=== PATIENT | female | born 1940 | race Caucasian/White ===

== ENCOUNTER 2019-09-27 14:43 | Inpatient (IN) | payer MEDICARE, MEDICAID ==
[~2019-09-27] VITALS: Ht 152.4 cm; Wt 52.2 kg
[~2019-09-27 14:43] MED LIST: ACET-9533 PO; ASPI-1718 PO; ATOR40TA PO; BACL10TA4 PO; DIT5 PO; DOCU-2 PO; FLUO-387 PO; GABA300C PO; MELO15TA11 PO; METO200T12 PO; NITR100C7 PO; RANI-287 PO; TRAM50TA1 PO; [UNRECOGNIZED DRUG - CODE] PO
[2019-09-27 14:56] VITALS: BP 163/81
--- NOTE | 2019-09-27 15:07 | NUR ---
PATIENT WHEELCHAIR ASSISTED TO BE 12. HOOKED UP TO MONITOR.
--- NOTE | 2019-09-27 15:41 | NUR ---
78/F TO ED WITH C/O NAUSEA/VOMTTING X 3 HRS PRIOR TO ARRIVAL. BOWEL SOUNDS ACTIVE X 4. NO DISTENTION NOTED. DENIES PAIN UPON PALPATION. ACTIVE VOMITTING UPON ARRIVAL TO BED. DR BAILON AWARE.
[2019-09-27] MEDS ORDERED: NACL 0.9% 1,000 ML IV SCH (15:47)
[2019-09-27] MEDS ORDERED: NACL 0.9% 500 ML IV SCH (15:47)
[2019-09-27] MEDS ORDERED: GLYCOPYRROLATE 0.2 MG/ML VIAL IV ONE (15:50)
[2019-09-27] MEDS ORDERED: METOCLOPRAMIDE 10 MG/2 ML INJ VIAL IVP ONE (15:50)
[2019-09-27] MEDS ORDERED: FAMOTIDINE 20 MG/2 ML VIAL IVP ONE (15:50)
[2019-09-27] MEDS ORDERED: ONDANSETRON 4 MG/2 ML VIAL IVP ONE (15:50)
[2019-09-27] MEDS ORDERED: KETOROLAC 15 MG/ML VIAL IVP ONE (15:55)
--- NOTE | 2019-09-27 16:00 | NUR ---
ULTRASOUND AT BEDSIDE
--- NOTE | 2019-09-27 16:25 | NUR ---
MEDICATED ORDERED FOR N/V. WILL CONTINUE TO MONITOR.
--- NOTE | 2019-09-27 16:35 | NUR ---
NO EPISODES OF VOMITTING POST IV ANTIEMETICS. WILL CONTINUE TO ASSESS.
[2019-09-27 16:48] LABS: BASOPHILS % (AUTO) 0.3 % (0.0-2.0); EOSINOPHILS % (AUTO) 0.2 % (0.0-4.0); HEMATOCRIT 43.9 % (36-48); HEMOGLOBIN 14.4 g/dL (12.0-16.0); LYMPHOCYTES # (AUTO) 1.3 K/uL (2.5-16.5); MEAN CORPUSCULAR HEMOGLOBIN 25 pg (27-31); MEAN CORPUSCULAR HGB CONC 33 g/dL (33-37); MEAN CORPUSCULAR VOLUME 77.3 fL (80-94); MONOCYTES # (AUTO) 0.7 K/uL (0.8-1.0); MONOCYTES % (AUTO) 6.4 % (1.7-9.3); NEUTROPHILS # (AUTO) 8.7 K/uL (1.8-7.7); NEUTROPHILS % (AUTO) 81.1 % (42.2-75.2); PLATELET COUNT (AUTO) 225 K/uL (140-450); RED BLOOD CELL COUNT(AUTO) 5.68 MIL/uL (4.20-5.40); RED CELL DISTRIBUTION WIDTH 15.3 % (11.6-13.7); WHITE BLOOD COUNT (AUTO) 10.7 K/uL (4.8-10.8)
[2019-09-27 17:06] LABS: APPEARANCE,URINE CLEAR (CLEAR); BILIRUBIN,URINE NEGATIVE (NEGATIVE); BLOOD, URINE NEGATIVE (NEGATIVE); COLOR,URINE YELLOW (YELLOW); LEUKOCYTE ESTERASE ,URINE NEGATIVE (NEGATIVE); NITRITE, URINE NEGATIVE (NEGATIVE); PH,URINE 8.5 (5.0-9.0); UGLUCOSE NEGATIVE (NEGATIVE)
[2019-09-27 17:06] LABS: PROTHROMBIN TIME 9.6 secs (10.8-13.4)
[2019-09-27 17:13] LABS: ANION GAP 19.6 (8-16); CARBON DIOXIDE 25.8 mmol/L (21-32); CHLORIDE 99 mmol/L (98-107); CREATININE 0.9 mg/dL (0.6-1.3); GLUCOSE 133 mg/dL (74-106); POTASSIUM 3.4 mmol/L (3.5-5.1); SODIUM SERUM 141 mmol/L (136-145); UREA NITROGEN, BLOOD 19 mg/dL (7-18)
[2019-09-27 17:27] LABS: ALBUMIN 4.4 g/dL (3.4-5.0); AMYLASE 75 U/L (25-115); ASPARTATE AMINOTRANSFERASE 24 U/L (15-37); GAMMA GLUTAMYL TRANSFERASE 9 U/L (7-51); LIPASE 238 U/L (73-393); MAGNESIUM 1.8 mg/dL (1.8-2.4); TOTAL BILIRUBIN 0.9 mg/dL (0.0-1.0)
--- NOTE | 2019-09-27 17:37 | NUR ---
Anthony lovell in [facility] - 09/27/19 at 1738 by ORION T[address]EN TO [address]
[2019-09-27] MEDS ORDERED: METF500T PO (18:10)
[2019-09-27] MEDS ORDERED: MEMA10TA PO (18:10)
[2019-09-27] MEDS ORDERED: EXE9.5T PO (18:10)
[2019-09-27] MEDS ORDERED: MIRA25TE PO (18:10)
[2019-09-27] MEDS ORDERED: ACETAMINOPHEN 325 MG TAB PO PRN (18:40)
[2019-09-27] MEDS ORDERED: DOCUSATE SODIUM 100 MG GELCAP PO PRN (18:40)
[2019-09-27] MEDS ORDERED: ONDANSETRON 4 MG/2 ML VIAL IM/IVP PRN (18:40)
--- NOTE | 2019-09-27 19:12 | NUR ---
REPORT TO EFRA RAMOS. ALL CARE TRANSFERRED AT THIS TIME.
--- NOTE | 2019-09-27 19:13 | NUR ---
RECEIVED REPORT FROM EFRA BROCK.
--- NOTE | 2019-09-27 19:30 | NUR ---
Admited to Med/Surg. Will go to room 123 B. Belongings list completed. Report to EFRA COSME .
--- NOTE | 2019-09-27 19:30 | NUR ---
RECEIVED PT FROM ER VIA WHEELCHAIR, PT AAOX2 ROMANIAN SPEAKER IV ON LEFT AC INFUSING WELL , SKIN IS INTACT, , MRSA NARES SWAB PROTOCOL TAKEN AND SENT TO LAB RELAIVE AT BED SIDE INITIAL ASSESSMENT DONE
[2019-09-27 19:59] LABS: PHOSPHORUS 2.1 mg/dL (2.5-4.9); THYROID STIMULATING HORMONE 3.2 uIU/mL (0.34-3.74)
[2019-09-27 20:00] VITALS: BP 154/75
[2019-09-27] MEDS ORDERED: INSULIN LISPRO SLIDING SCALE 100 UNITS/ML VIAL SUBQ PRN (21:05)
[2019-09-27] MEDS ORDERED: hydrALAZINE 20 MG/ML VIAL IVP SCH (21:05)
[2019-09-27] MEDS ORDERED: DEXTROSE 50% 50 ML SYR IVP PRN (21:05)
[2019-09-27 22:02] LABS: ACETONE, SERUM NEGATIVE (NEGATIVE)
--- NOTE | 2019-09-27 22:30 | NUR ---
PT IS ASSISTED TO AMBULATES TO THE RESTROOM VOIDING WELL
[2019-09-27] MEDS ORDERED: POTASSIUM CHLORIDE 10 MEQ TABER PO SCH (23:00)
[2019-09-28] VITALS: BP 123/67
[2019-09-28] MEDS: NACL 0.9% 1,000 ML IV SCH ×2 (01:00→11:16)
--- NOTE | 2019-09-28 01:00 | NUR ---
PT SLEEPING WELL IV ON LEFT AC INFUSING WELL REMAIN STBLE NOT VOMITING SINCE ADMISSION
--- NOTE | 2019-09-28 04:00 | NUR ---
SPONGE BATH GIVEN LINEN CHANGED, PT VOIDING WELL WALKING TO THE RESTROOM REMAIN STBLE NOT NAUSEAS NOT VOMITING NOT ABD PAIN
--- NOTE | 2019-09-28 05:49 | NUR ---
PT IS TAKEN TO CT HEAD , PT COOPERATIVE NOT DISTRESS NOTED
[2019-09-28 06:14] LABS: CHOL/HDL RATIO 1.9 (1-4.5)
[2019-09-28] MEDS: BLOOD GLUCOSE MONITORING 1 DEV DEV FS SCH ×2 (06:55→12:20)
--- NOTE | 2019-09-28 07:24 | NUR ---
BLOOD SUGAR TEST 86, PT REMAIN STABLE NOT VOMITING TOLERATING WELL LIQUID DIET PT IS ENDORSED TODAY SHIFT NURSE FOR CONTINUE OF CARE .
--- NOTE | 2019-09-28 07:42 | NUR ---
RECEIVED BEDSIDE REPORT FROM PM RN PT AWAKE IN BED PT APPEARS STABLE AND IN NO APPARENT DISTRESS. ALL SAFETY MEASURES ARE IN PLACE WILL CONTINUE TO MONITOR. CALL LIGHT WITHIN REACH.
--- NOTE | 2019-09-28 08:42 | NUR ---
PATIENT HAS BEEN SCREENED AND CATEGORIZED MODERATE NUTRITION RISK. PATIENT WILL BE SEEN WITHIN 3-5 DAYS OF ADMISSION. 09/30/19 10/02/[address]
[2019-09-28 08:56] VITALS: BP 126/64
[2019-09-28] MEDS ORDERED: MEMANTINE 10 MG TAB PO SCH (09:00)
[2019-09-28] MEDS ORDERED: SODIUM PHOS / POTASSIUM PHOS 1 PKT PDR PO SCH (09:00)
[2019-09-28] MEDS ORDERED: FAMOTIDINE 20 MG TAB PO SCH (09:00)
[2019-09-28] MEDS ORDERED: PANTOPRAZOLE 40 MG INJ VIAL IVP SCH (09:00)
[2019-09-28] MEDS ORDERED: ASPIRIN 81 MG TAB.CHEW PO SCH (09:00)
--- NOTE | 2019-09-28 13:50 | NUR ---
REVIEWED DISCHARGE INSTRUCTIONS WITH PATIENTS SON IN LAW. HE SPOKE [place] FLUENTLY. ANSWERED ALL QUESTIONS FOR THE PATIENT. REMOVED IV IV TIP INTACT. ALL SAFETY MEASURES ARE IN PLACE. REMOVED ID BAND. PT ESCORTED TO FRONT LOBBY VIA WHEELCHAIR PT DAUGHTER AND SON IN LAW PRESENT AT DISCHARGE. ALL SAFETY MEASURES ARE IN PLACE. PT LEFT WITH ALL PERSONAL BELONGINGS. PT IS AWARE OF HER FOLLOW UP APPOINTMENT THAT HAS BEEN SCHEDULED FOR HER. ALL SAFETY MEASURES ARE IN PLACE.
--- NOTE | 2019-09-28 13:50 | NUR ---
MERLIN assessment/discharge plan High Risk DC Screen Yes Name: Maile Payne Home Relationship: daughter Pre-Admission Living Arrangements: Lives with Other Other: Maile Payne Prior ADL Independent Current Home Health Name/Tel: N/A Current DME/02 Name/Tel: blood glucose monitor Current Hospice Name/Tel: N/A Current Dialysis Name/Tel: N/A Healthcare Decision Maker: Patient Advance Directive No Information Taught: Advance Directive Person Taught: Family Patient Teaching Tools: Computer Generated Print Verbal Factors Affecting Learning: None Participation Level: Active Evaluation: Gestures Understanding Verbalizes Understanding Educator: MERLIN John Tentative Discharge Plan Summary: Patient is an 78 year old female with previous medical history significant for diabetes, hypertension, and dementia. I met with patient and patient's sister Hanny Parr at bedside. Patient and Hanny speak Singaporean. Patient lives at home with her daughter Maile Payne and plans to return home upon discharge. Patient's pcp is Dean Tate and she does not have any difficulty filling her prescriptions at pharmacy. Patient's family helps patient with transportation. Patient and Hanny do not have any questions/concerns at this time. Oceanography Teacher and/or Assistive Technology Trainer will follow up as needed. Signature: MERLIN John Date: Sep 28, 2019
--- NOTE | 2019-09-28 13:53 | NUR ---
DC [age] YRS OLD FEMALE PT WAS ADMITTED FROM HOME WITH A DX OF INTRACTABLE VOMITING, LACTIC ACIDOSIS . PT HAS A HX OF DM, HTN, DEMENTIA AND ARTHRITIS. CT HEAD (-) CT ABD/PELVIS AND ULTRASOUND OF ABDOMEN NORMAL . ADMINISTERED IVF FOR HYDRATION, ZOFRAN AND PEPCID IVP FOR VOMITING.DIET WAS ADVANCED AND WELL TOLERATED. PHYSICAL THERAPY WALKED THE PATIENT AND SHE WAS STEADY ON HER FEET VITALS STABLE . PATIENT IS STABLE FOR DISCHARGE HOME A FOLLOW UP APPOINTMENT WITH SCHEDULED WITH HER PCP . PT IS STABLE TO BE DISCHARGE.
[2019-09-28] MEDS ORDERED: BACLOFEN 10 MG TAB PO SCH (17:00)
[2019-09-28] MEDS ORDERED: ATORVASTATIN 20 MG TAB PO SCH (17:00)
== END 2019-09-28 14:00 | disposition home or self-care (01) | DRG 640 ==
LOC: MED 14:43 → MTU 18:36
PROVIDERS: ADMIT General Practice; ATTEND General Practice
DX: E86.0 Dehydration (principal); G93.41 Metabolic encephalopathy; E87.2 Acidosis; F03.90 Unspecified dementia, unspecified severity, without behavioral disturbance, psychotic disturbance, mood disturbance, and anxiety; I10 Essential (primary) hypertension; E11.9 Type 2 diabetes mellitus without complications; M19.90 Unspecified osteoarthritis, unspecified site; E87.6 Hypokalemia; E83.39 Other disorders of phosphorus metabolism; E78.5 Hyperlipidemia, unspecified; Z88.5 Allergy status to narcotic agent; Z82.5 Family history of asthma and other chronic lower respiratory diseases; Z83.3 Family history of diabetes mellitus; Z82.3 Family history of stroke
CPT/HCPCS: 36415; 70450; 71045; 76705; 80053; 81003; 82009; 82150; 82948; 82977; 83036; 83605; 83690; 83735; 83880; 84100; 84134; 84443; 84484; 85025; 85610; 87081; 93005; 93880; 96361; 96374; 96375; 99285; J1815; J1885; J2405; J2765; J3490; J7030; Q0092

== ENCOUNTER 2019-11-07 11:20 | Emergency (ER) | payer MEDICARE, MEDICAID ==
[~2019-11-07] VITALS: Ht 152.4 cm; Wt 49.0 kg
[~2019-11-07 11:20] MED LIST changes: -ACET-9533 PO; -ASPI-1718 PO; +ASPI-1822 PO; -DIT5 PO; -DOCU-2 PO; -FLUO-387 PO; -GABA300C PO; -MELO15TA11 PO; +MEMA10TA PO; +METF500T PO; -NITR100C7 PO; -RANI-287 PO; -TRAM50TA1 PO; -[UNRECOGNIZED DRUG - CODE] PO
[2019-11-07 11:28] VITALS: BP 120/74
--- NOTE | 2019-11-07 11:38 | NUR ---
Anthony lovell in [facility] - 11/07/19 at 1139 by MED1 WAIT AT LOBBY. HANDED ON URINE CUP.
--- NOTE | 2019-11-07 11:46 | NUR ---
78 Y/F PRESENTS TO ED FOR CP "SWELLING AND TIGHT" X 8 DAYS. PAIN IS ON AND OFF. PT WAS SEEN IN URGENT CARE TODAY AND WAS SENT HERE FOR A CARDIAC EVALUATION. PAIN IS WORSE WHEN WALKING. PT REPORTS 6/10 PAIN, SOB, FOUNTAIN (5/10). PT DENEIS NAUSEA OR BLURRED VISION. HX- CONGENITAL CARDIAC PROBLEM, HTN, HLD, AND DM
--- NOTE | 2019-11-07 12:10 | NUR ---
XR AT BEDSIDE.
--- NOTE | 2019-11-07 12:29 | NUR ---
LAB AT BEDSIDE.
[2019-11-07 12:53] LABS: BASOPHILS # (AUTO) 0.2 K/uL (0.00-0.22); BASOPHILS % (AUTO) 2.4 % (0.0-2.0); EOSINOPHILS # (AUTO) 0.1 K/uL (0-0.4); EOSINOPHILS % (AUTO) 0.7 % (0.0-4.0); HEMOGLOBIN 14.4 g/dL (12.0-16.0); LYMPHOCYTES # (AUTO) 2.2 K/uL (2.5-16.5); LYMPHOCYTES % (AUTO) 27.4 % (20.5-51.1); MEAN CORPUSCULAR HEMOGLOBIN 25 pg (27-31); MEAN CORPUSCULAR HGB CONC 33 g/dL (33-37); MEAN CORPUSCULAR VOLUME 75.3 fL (80-94); MONOCYTES # (AUTO) 0.4 K/uL (0.8-1.0); NEUTROPHILS # (AUTO) 5.1 K/uL (1.8-7.7); NEUTROPHILS % (AUTO) 64.5 % (42.2-75.2); PLATELET COUNT (AUTO) 215 K/uL (140-450); RED BLOOD CELL COUNT(AUTO) 5.71 MIL/uL (4.20-5.40)
[2019-11-07 13:18] LABS: ANION GAP 12.7 (8-16); CARBON DIOXIDE 28.4 mmol/L (21-32); CHLORIDE 104 mmol/L (98-107); CREATININE 0.9 mg/dL (0.6-1.3); GLUCOSE 78 mg/dL (74-106); POTASSIUM 4.1 mmol/L (3.5-5.1); SODIUM SERUM 141 mmol/L (136-145); UREA NITROGEN, BLOOD 14 mg/dL (7-18)
[2019-11-07 13:23] LABS: ALBUMIN 3.9 g/dL (3.4-5.0); ASPARTATE AMINOTRANSFERASE 27 U/L (15-37); TOTAL BILIRUBIN 0.8 mg/dL (0.0-1.0)
--- NOTE | 2019-11-07 14:14 | NUR ---
DR. CHIU AT BEDSIDE.
--- NOTE | 2019-11-07 14:15 | NUR ---
Dr. Portillo is evaluating the patient at bedside.
[2019-11-07 14:59] VITALS: BP 127/69
== END 2019-11-07 15:00 | disposition home or self-care (01) ==
LOC: MED 11:20
DX: R07.9 Chest pain, unspecified (principal); R05 Cough; E11.9 Type 2 diabetes mellitus without complications; I10 Essential (primary) hypertension; Z79.82 Long term (current) use of aspirin; Z79.84 Long term (current) use of oral hypoglycemic drugs; Z79.899 Other long term (current) drug therapy; Z88.5 Allergy status to narcotic agent
CPT/HCPCS: 36415; 71045; 80053; 84484; 85025; 93005; 99285; Q0092